=== PATIENT | female | born 1980 | race Caucasian/White ===

== ENCOUNTER → 2017-07-02 | Outpatient (CLI) | payer OTHER ==
[~2017-07-02] MED LIST: APRI1 EACH PO; BUSP15 PO; CITA20 PO; CLON.5 PO; DIVA500EC PO; ERGO400 PO; IBUP800 PO; LAMO25 PO; LITH300C PO; PRENATAL TABLE1 EAC2 PO; RISP1 PO
== END ==
LOC: LAB 16:16 → LAB SHORT 16:16
DX: Z34.83 Encounter for supervision of other normal pregnancy, third trimester (principal); Z3A.35 35 weeks gestation of pregnancy
CPT/HCPCS: 87081; 87653

== ENCOUNTER 2017-08-18 07:20 | Inpatient (IN) | payer BC ==
[~2017-08-18] VITALS: Ht 162.6 cm; Wt 117.7 kg
[2017-08-18 09:01] LABS: BASOPHILS ABSOLUTE AUTO 0.02 K/mm3 (0.00-0.23); BASOPHILS PERCENT AUTO 0 % (0-2); EOSINOPHILS ABSOLUTE AUTO 0.11 K/mm3 (0.00-0.68); EOSINOPHILS PERCENT AUTO 1 % (0-6); Hematocrit 35.2 % (33.0-51.0); Hemoglobin 11.7 g/dL (11.5-16.0); IMMATURE GRAN ABSOLUTE AUTO 0.05 K/mm3 (0.00-0.10); IMMATURE GRAN PERCENT AUTO 1 % (0-1); LYMPHOCYTES ABSOLUTE AUTO 1.84 K/mm3 (0.84-5.20); LYMPHOCYTES PERCENT AUTO 20 % (21-46); MONOCYTES PERCENT AUTO 6 % (4-13); Mean Corpuscular HGB 29.5 pg (26.0-34.0); Mean Corpuscular HGB Conc 33.2 g/dL (31.5-36.5); Mean Corpuscular Volume 89 fL (80-100); Mean Platelet Volume 10.6 fL (9.1-12.4); NEUTROPHILS ABSOLUTE AUTO 6.72 K/mm3 (1.96-9.15); NEUTROPHILS PERCENT AUTO 72 % (41-73); Platelet Count 221 K/mm3 (150-400); RDW Coefficient Variation 15.1 % (11.7-14.2); RDW Standard Deviation 49.1 fL (35.1-46.3); Red Blood Cell Count 3.96 M/mm3 (3.80-5.20); White Blood Cell Count 9.34 K/mm3 (4.00-11.30)
[2017-08-19 10:25] LABS: PCO2 Cord - Arterial 58.8 mmHg (40-50); PO2 Cord - Arterial > 16 mmHg (16-20); pH Cord - Arterial 7.24 (7.28-7.35)
[2017-08-19 10:27] LABS: PCO2 Cord - Venous 50.1 mmHg (40-50); PO2 Cord - Venous 15.5 mmHg (28-32); pH Umbilical Cord - Venous 7.28 (7.26-7.35)
[2017-08-20 05:38] LABS: Hematocrit 24.7 % (33.0-51.0); Hemoglobin 8.3 g/dL (11.5-16.0); Mean Corpuscular HGB Conc 33.6 g/dL (31.5-36.5); Mean Corpuscular Volume 89 fL (80-100); Mean Platelet Volume 10.4 fL (9.1-12.4); Platelet Count 179 K/mm3 (150-400); RDW Coefficient Variation 15.5 % (11.7-14.2); RDW Standard Deviation 50.4 fL (35.1-46.3); Red Blood Cell Count 2.77 M/mm3 (3.80-5.20); White Blood Cell Count 11.43 K/mm3 (4.00-11.30)
[2017-08-21] MEDS ORDERED: IBUP800 PO (11:22)
[2017-08-21] MEDS ORDERED: Percocet 5-3251 EACH PO (11:22)
== END 2017-08-21 12:10 | disposition home or self-care (01) | DRG 765 ==
LOC: BC 07:20
PROVIDERS: Obstetrics & Gynecology
PROC: 10907ZC Drainage of Amniotic Fluid, Therapeutic from Products of Conception, Via Natural or Artificial Opening (ICD-10-PCS; 2017-08-19)
PROC: 10D00Z1 Extraction of Products of Conception, Low, Open Approach (ICD-10-PCS; principal; 2017-08-19 09:30)
DX: O48.0 Post-term pregnancy (principal); Z68.41 Body mass index [BMI] 40.0-44.9, adult; O32.4XX0 Maternal care for high head at term, not applicable or unspecified; Z3A.42 42 weeks gestation of pregnancy; Z37.0 Single live birth; Z88.5 Allergy status to narcotic agent; Z91.048 Other nonmedicinal substance allergy status; O66.5 Attempted application of vacuum extractor and forceps; O36.63X0 Maternal care for excessive fetal growth, third trimester, not applicable or unspecified; O77.0 Labor and delivery complicated by meconium in amniotic fluid; O99.214 Obesity complicating childbirth; E66.01 Morbid (severe) obesity due to excess calories
CPT/HCPCS: 36415; 51702; 82803; 85025; 85027; J0290; J0690; J1885; J2210; J2370; J2405; J2590; J2765; J3010; J7120

== ENCOUNTER 2017-08-26 20:23 | Emergency (ER) | END 2017-08-27 01:34 | disposition home or self-care (01) ==

== ENCOUNTER 2018-08-21 08:52 | Day surgery (SDC) | payer BC ==
[~2018-08-21 08:52] MED LIST changes: +Augmentin 875-1 EACH PO; +Percocet 5-3251 EACH PO
== END 2018-08-21 22:48 | disposition home or self-care (01) ==
LOC: MOI RAD 08:52
DX: S43.431D Superior glenoid labrum lesion of right shoulder, subsequent encounter (principal); M13.811 Other specified arthritis, right shoulder; M75.51 Bursitis of right shoulder
CPT/HCPCS: 20610; 73222; 77002; A9577; Q9967